=== PATIENT | female | born 1990 | race Two or more races ===

== ENCOUNTER 2022-02-17 17:41 | Inpatient (IN) | payer OTHER ==
[~2022-02-17] VITALS: Ht 175.3 cm; Wt 59.0 kg
[2022-02-17] MEDS ORDERED: IV LR 1000 ML 1,000 ML IV ONE ×3 (18:30→22:00)
--- NOTE | 2022-02-17 19:31 | NUR ---
RECEIVED PT IN ER ROOM 4. FROM HOME C/O ABD PAIN , N/V. PT IS ALERT AND ORIENTED. RR EVEN AND NON LABORED. CONNECTED TO POX AND HEART MONITOR.
[2022-02-17 19:39] LABS: CALCIUM, SERUM 8.7 mg/dL (8.5-10.1); CREATININE 2.2 mg/dL (0.6-1.3); POTASSIUM 5.4 mmol/L (3.5-5.1)
--- NOTE | 2022-02-17 19:40 | NUR ---
CRITICAL LAB GLUCOSE: [id number] , CO2 : 6 MADE AWARE
[2022-02-17 19:42] LABS: ALBUMIN 4.3 g/dL (3.4-5.0); BILIRUBIN,TOTAL 0.7 mg/dL (0.2-1.0); TOTAL PROTEIN, SERUM 8.6 g/dL (6.4-8.2)
[2022-02-17 19:51] LABS: BILIRUBIN,URINE 1+ (NEGATIVE); COLOR,URINE YELLOW (YELLOW); LEUKOCYTE ESTERASE ,URINE NEGATIVE (NEGATIVE); NITRITE, URINE NEGATIVE (NEGATIVE); PH,URINE 5.5 (5.0-8.0); PROTEIN,URINE 1+ mg/dl (NEGATIVE); UGLUCOSE 3+ mg/dL (NEGATIVE); UROBILINOGEN,URINE 0.2 EU/dL (0.2)
[2022-02-17] MEDS ORDERED: INSULIN REGULAR, HUMAN 100 UNIT in IV NS 0.9% 99 ML IV STA ×2 (19:52)
[2022-02-17] MEDS ORDERED: IV NS 0.9% 1,000 ML IV PRN (20:00)
[2022-02-17 20:13] LABS: BACTERIA,URINE None seen /HPF (None Seen); WBC,URINE 0-2 /HPF (0-3)
[2022-02-17 20:14] LABS: MUCUS,URINE Few /LPF (None Seen)
[2022-02-17] MEDS ORDERED: INSULIN REGULAR, HUMAN 100 UNIT/ML 10 ML VIAL ONE (20:21)
[2022-02-17 20:22] LABS: BASOPHILS # (AUTO) 0.1 K/uL (0.0-0.2); BASOPHILS % (AUTO) 0.2 % (0.0-2.0); HEMATOCRIT 52 % (33-45); HEMOGLOBIN 17.2 g/dL (11.5-14.8); LYMPHOCYTES # (AUTO) 1.1 K/uL (0.8-4.8); LYMPHOCYTES % (AUTO) 2.7 % (20.0-44.0); MEAN CORPUSCULAR HGB CONC 33 g/dl (31.0-36.0); MEAN CORPUSCULAR VOLUME 96 fL (82-100); MONOCYTES # (AUTO) 2.8 K/uL (0.1-1.30); NEUTROPHILS # (AUTO) 36.4 K/uL (1.8-8.9); NEUTROPHILS % (AUTO) 90.1 % (43.0-81.0); PLATELET COUNT (AUTO) 450 K/uL (150-450); RED BLOOD CELL COUNT(AUTO) 5.46 MIL/uL (4.0-5.2)
[2022-02-17 20:41] LABS: CALCIUM, SERUM 8.5 mg/dL (8.5-10.1); CREATININE 1.9 mg/dL (0.6-1.3); MAGNESIUM 2.2 mg/dL (1.8-2.4); POTASSIUM 5.4 mmol/L (3.5-5.1)
[2022-02-17 20:43] LABS: WHITE BLOOD COUNT (AUTO) 40.4 K/uL (4.3-11.0)
--- NOTE | 2022-02-17 20:43 | NUR ---
GLUCOSE 521 CO2 6, MD AWARE
--- NOTE | 2022-02-17 21:12 | NUR ---
CORDELL FROM [facility] NOTIFIED OF PT. AWAITING MD CALL BACK.
--- NOTE | 2022-02-17 21:48 | NUR ---
POC BG [phone]
[2022-02-17] MEDS ORDERED: ACETAMINOPHEN 325 MG TABLET PO PRN (22:00)
[2022-02-17] MEDS ORDERED: ONDANSETRON HCL/PF 4 MG/2 ML VIAL IVP PRN (22:00)
[2022-02-17] MEDS ORDERED: MORPHINE SULFATE INJ 2 MG/ML DISP.SYRIN IV PRN (22:00)
[2022-02-17] MEDS ORDERED: INSULIN REGULAR, HUMAN 100 UNIT in IV NS 0.9% 99 ML IV SCH ×2 (22:00)
[2022-02-17] MEDS ORDERED: IV D5/0.45 NACL 1,000 ML IV PRN (22:00)
[2022-02-17] MEDS ORDERED: PIPERACILLIN /TAZOBACTAM 3.375 G in IV D5W 50 ML IV ONE (22:00)
[2022-02-17] MEDS ORDERED: VANCOMYCIN 1 GM in IV D5W 250 ML IV ONE (22:00)
[2022-02-17] MEDS ORDERED: POTASSIUM CL. PREMIX PERIPHER. 50 ML IV PRN (22:00)
[2022-02-17] MEDS ORDERED: MAG HYDROX/AL HYDROX/SIMETH 30 ML UDC PO PRN (22:00)
[2022-02-17] MEDS ORDERED: PIPERACILLIN /TAZOBACTAM 3.375 G VIAL IV ONE (22:02)
--- NOTE | 2022-02-17 22:10 | NUR ---
HOSPITALIST [facility]ULMARO AT [facility]
[2022-02-17 22:13] LABS: BAND % (MANUAL) 7 % (0.0-5.0); LYMPHOCYTES % (MANUAL) 5 % (16-48); MONOCYTES % (MANUAL) 6 % (0-11.0); NEUTROPHILS % (MANUAL) 82 (42-76)
--- NOTE | 2022-02-17 22:15 | NUR ---
PER DR CHAMBERLAIN, CANCEL ORDER FOR 1000ML LR
[2022-02-17 22:21] LABS: CALCIUM, SERUM 8.6 mg/dL (8.5-10.1); CREATININE 1.7 mg/dL (0.6-1.3); MAGNESIUM 2.2 mg/dL (1.8-2.4)
--- NOTE | 2022-02-17 22:36 | NUR ---
CO2 9 AND GLUCOSE 472, MD AWARE
[2022-02-17 22:40] LABS: SITE, VBG Other; VBG COHb 0.3 %; VBG MetHb 0.4 %; VBG O2Hb 86.4 %; VENT MODE, VBG VBG
[2022-02-17 22:47] LABS: CALCIUM, SERUM 8.4 mg/dL (8.5-10.1); CREATININE 1.7 mg/dL (0.6-1.3); POTASSIUM 4.7 mmol/L (3.5-5.1)
--- NOTE | 2022-02-17 22:51 | NUR ---
ICU 254
[2022-02-17 22:53] LABS: ALBUMIN 3.6 g/dL (3.4-5.0); BILIRUBIN,TOTAL 0.9 mg/dL (0.2-1.0); TOTAL PROTEIN, SERUM 7.4 g/dL (6.4-8.2)
[2022-02-17] MEDS ORDERED: VANCOMYCIN 1 GM VIAL ONE (23:01)
--- NOTE | 2022-02-17 23:18 | NUR ---
REPORT GIVEN TO QUEENIE MAYORGA FOR RUDY
[2022-02-17 23:30] LABS: CALCIUM, SERUM 8.5 mg/dL (8.5-10.1); CREATININE 1.7 mg/dL (0.6-1.3); MAGNESIUM 2.1 mg/dL (1.8-2.4); PHOSPHORUS 2.4 mg/dL (2.5-4.9); POTASSIUM 4.5 mmol/L (3.5-5.1)
[2022-02-18] VITALS (16 sets, daily range): BP systolic 90–130; BP diastolic 56–73
[2022-02-18] MEDS ORDERED: CEFEPIME 2 GM in IV D5W 100 ML IV ONE ×2
[2022-02-18 00:01] LABS: BILIRUBIN,DIRECT 0.2 mg/dL (0.0-0.2)
[2022-02-18] MEDS: IV 1/2NS 1000 ML 1,000 ML IV PRN ×2 (00:37→08:12)
[2022-02-18] MEDS: BLOOD SUGAR DIAGNOSTIC 1 EACH STRIP IN SCH ×7 (00:44→21:57)
[2022-02-18] MEDS ORDERED: CEFEPIME 1 GM VIAL ONE (01:43)
--- NOTE | 2022-02-18 02:38 | NUR ---
ICU/RN: PT POC BLOOD GLUCOSE 221 IVF CHANGED TO D5 1/2NS @250ML/HR PER MD ORDER.
[2022-02-18 03:10] LABS: ALBUMIN 3.3 g/dL (3.4-5.0); CALCIUM, SERUM 8.4 mg/dL (8.5-10.1); CREATININE 1.4 mg/dL (0.6-1.3); POTASSIUM 3.8 mmol/L (3.5-5.1); TOTAL PROTEIN, SERUM 6.7 g/dL (6.4-8.2)
--- NOTE | 2022-02-18 03:57 | NUR ---
ICU/RN: LATEST BMP RESULTS RELAYED TO DR. WILKINS. NEW ORDERS TO DC INSULIN DRIP. DC Q1H ACCUCHECK. KEEP IVF D51/2NS@250ML/HR. START ACHS ACCUCHECK WITH REGULAR INSULIN SLIDING SCALE AND GIVE 12UNITS LANTUS SQ TIMES 1 NOW.
[2022-02-18] MEDS ORDERED: *INSULIN REGULAR(HUMULIN R)HUM 100 UNIT/ML VIAL SQ PRN (04:00)
[2022-02-18] MEDS ORDERED: DEXTROSE 50%-WATER 50 ML DISP.SYRIN IV PRN (04:00)
[2022-02-18] MEDS ORDERED: INSULIN GLARGINE, 100 UNIT/ML CARTRIDGE SQ ONE (05:34)
[2022-02-18] MEDS ORDERED: INSULIN REGULAR, HUMAN 100 UNIT/ML 3 ML VIAL ONE (05:34)
[2022-02-18] MEDS: INSULIN GLARGINE, 100 UNIT/ML CARTRIDGE SQ SCH ×3 (05:42→17:34)
[2022-02-18 06:32] LABS: SITE, VBG Right Radial; VBG AaDO2 14.6 mmHg; VBG COHb 0.9 %; VBG MetHb 0.2 %; VBG OXYGEN SATURATION 98.1 %; VENT MODE, VBG room air
[2022-02-18 06:57] LABS: BASOPHILS % (AUTO) 0.2 % (0.0-2.0); HEMATOCRIT 42 % (33-45); HEMOGLOBIN 14.7 g/dL (11.5-14.8); LYMPHOCYTES # (AUTO) 1.6 K/uL (0.8-4.8); LYMPHOCYTES % (AUTO) 6.7 % (20.0-44.0); MEAN CORPUSCULAR HGB CONC 35 g/dl (31.0-36.0); MEAN CORPUSCULAR VOLUME 89 fL (82-100); MONOCYTES # (AUTO) 2.4 K/uL (0.1-1.30); MONOCYTES % (AUTO) 10.3 % (2.0-12.0); NEUTROPHILS # (AUTO) 19.6 K/uL (1.8-8.9); NEUTROPHILS % (AUTO) 82.8 % (43.0-81.0); PLATELET COUNT (AUTO) 308 K/uL (150-450); WHITE BLOOD COUNT (AUTO) 23.7 K/uL (4.3-11.0)
[2022-02-18 07:30] LABS: ALBUMIN 3.1 g/dL (3.4-5.0); CALCIUM, SERUM 8.3 mg/dL (8.5-10.1); CREATININE 1.1 mg/dL (0.6-1.3); MAGNESIUM 1.9 mg/dL (1.8-2.4); PHOSPHORUS 2.5 mg/dL (2.5-4.9); TOTAL PROTEIN, SERUM 6.4 g/dL (6.4-8.2)
[2022-02-18] MEDS: INSULIN REGULAR, HUMAN 100 UNIT/ML 3 ML VIAL SQ PRN ×2 (08:15→13:19)
[2022-02-18] MEDS ORDERED: SPIRONOLACTONE 25 MG TABLET PO SCH (09:00)
[2022-02-18] MEDS ORDERED: INSU100V SQ (09:03)
[2022-02-18] MEDS: VANCOMYCIN 1 GM in IV D5W 250 ML IV SCH ×2 (09:52→20:37)
[2022-02-18] MEDS: ESTRADIOL 1 MG TABLET PO SCH ×2 (10:47→17:15)
--- NOTE | 2022-02-18 10:47 | NUR ---
[facility] MED. DUE AT 0900AM, UNAVAILABLE EARLIER; JUST DELIVERED NOW; FOLLOW-UP MADE 4X WITH LACI-PHARMACIST AT 0900A; 0930AM, 1000AM AND 10:30AM. ADMINISTERED LATE. CHARGE NURSE AWARE.
[2022-02-18 10:52] LABS: CALCIUM, SERUM 8.1 mg/dL (8.5-10.1); CREATININE 1.1 mg/dL (0.6-1.3); POTASSIUM 3.4 mmol/L (3.5-5.1)
[2022-02-18 10:58] LABS: ALBUMIN 2.9 g/dL (3.4-5.0); BILIRUBIN,TOTAL 0.8 mg/dL (0.2-1.0); TOTAL PROTEIN, SERUM 5.9 g/dL (6.4-8.2)
[2022-02-18] MEDS: IV NS 0.9% 1,000 ML IV PRN (11:02)
--- NOTE | 2022-02-18 11:40 | NUR ---
PATIENT TRANSFERRED FORM ICU WITH WHEEL CHAIR ACCOMPANIED BY STAFF, ADMIT DX IS DKA REPORTED BY AMBREEN/RN. PATIENT AO X 4, ABLE TO RESPONDS ALL STIMULI, IN NO ACUTE DISTRESS OBSERVED. RESPIRATORY EVEN AND UNLABORED IN ROOM AIR. AMBULATORY WITHOUT ASSIST. CALL LIGHT WITHIN REACH, WILL CONTINUE TO MONITOR.
--- NOTE | 2022-02-18 11:50 | NUR ---
TRANSFERRED PT TO [facility] 307-1 PER ORDER/PROTOCOL; BEDSIDE REPORT GIVEN TO MIMI, PT.STABLE CONDITION; NO SSx OF DISTRESS NOTED. VS STABLE . ALL BELONGINGS TRANSFERRED WITH PATIENT, MIMI AWARE.
[2022-02-18] MEDS: CEFEPIME 2 GM in IV D5W 100 ML IV SCH (13:21)
[2022-02-18 14:46] LABS: ALBUMIN 2.8 g/dL (3.4-5.0); BILIRUBIN,TOTAL 0.8 mg/dL (0.2-1.0); CALCIUM, SERUM 8.5 mg/dL (8.5-10.1); CREATININE 0.9 mg/dL (0.6-1.3); POTASSIUM 3.5 mmol/L (3.5-5.1); TOTAL PROTEIN, SERUM 5.8 g/dL (6.4-8.2)
--- NOTE | 2022-02-18 16:42 | NUR ---
PATIENT POTASSIUM LEVEL IS 3.4 TODAY. PATIENT DOES NOT WANT TO POTASSIUM ADMINISTER ROUT VIA IV. NEW ORDER POTASSIUM 20 MEQ PO X 1. NOTED AND CARRY OUT.
[2022-02-18] MEDS ORDERED: POTASSIUM CHLORIDE 20 MEQ POWDER PACKET PO ONE (17:00)
--- NOTE | 2022-02-18 18:00 | NUR ---
CLOSING NOTE PATIENT RESTING IN BED. IN NO ACUTE DISTRESS OBSERVED. RESPIRATORY EVEN AND UNLABORED IN ROOM AIR. SKIN IS WARM TO TOUCH KEEP CLEAN/DRY. KEPT ELEVATED HOB FOR ENSURE AIRWAY/ASPIRATION PRECAUTION, AND LOWEST BED POSITION. BED ALARM IS ON AT ALL THE TIME FOR SAFETY. CALL LIGHT WITHIN REACH, WILL ENDORSE HOTEL OR MOTEL CLEANING SUPERVISOR.
[2022-02-18 18:52] LABS: CALCIUM, SERUM 8.6 mg/dL (8.5-10.1); CREATININE 0.9 mg/dL (0.6-1.3); POTASSIUM 3.5 mmol/L (3.5-5.1)
[2022-02-18 18:58] LABS: ALBUMIN 2.8 g/dL (3.4-5.0); BILIRUBIN,TOTAL 0.8 mg/dL (0.2-1.0); TOTAL PROTEIN, SERUM 5.7 g/dL (6.4-8.2)
--- NOTE | 2022-02-18 19:35 | NUR ---
MS RN NOTES RECEIVED ON BED SLEEPING,EASILY AROUSABLE TO VERBAL STIMULI,BREATHING REGULAR,NOT IN ANY FORM OF DISTRESS.PRESENT IVF NS AT 150ML/HR RATE INFUSING WELL ON LEFT AC SALINE LOCK VIA IV PUMP.NO COMPLAINTS AT THE MOMENT,CALL LIGHT IN REACH,NEEDS ANTICIPATED.
--- NOTE | 2022-02-18 22:00 | NUR ---
MS RN NOTES ACCU-CHECK BLOOD SUGAR CHECK 247MG/DL,COVERED WITH HUMULIN R 4 UNITS PER SLIDING SCALE.
[2022-02-18 22:52] LABS: ALBUMIN 2.8 g/dL (3.4-5.0); BILIRUBIN,TOTAL 0.6 mg/dL (0.2-1.0); CALCIUM, SERUM 8.7 mg/dL (8.5-10.1); CREATININE 0.9 mg/dL (0.6-1.3); POTASSIUM 3.8 mmol/L (3.5-5.1); TOTAL PROTEIN, SERUM 5.8 g/dL (6.4-8.2)
[2022-02-19] MEDS: CEFEPIME 2 GM in IV D5W 100 ML IV SCH ×2 (01:51→13:49)
[2022-02-19 02:21] LABS: CALCIUM, SERUM 8.5 mg/dL (8.5-10.1); CREATININE 0.7 mg/dL (0.6-1.3); POTASSIUM 3.2 mmol/L (3.5-5.1)
[2022-02-19 02:28] LABS: ALBUMIN 2.8 g/dL (3.4-5.0); BILIRUBIN,TOTAL 0.7 mg/dL (0.2-1.0); TOTAL PROTEIN, SERUM 5.7 g/dL (6.4-8.2)
[2022-02-19] MEDS: IV NS 0.9% 1,000 ML IV PRN ×3 (03:24→13:56)
--- NOTE | 2022-02-19 05:30 | NUR ---
MS RN NOTES ACCU-CHECK BLOOD SUGAR CHECK 85,NO INSULIN COVERAGE.SNACKS PROVIDED AT BEDSIDE PER PATIENT REQUEST.
[2022-02-19 06:00] LABS: ALBUMIN 2.8 g/dL (3.4-5.0); BILIRUBIN,TOTAL 0.7 mg/dL (0.2-1.0); CALCIUM, SERUM 8.5 mg/dL (8.5-10.1); CREATININE 0.7 mg/dL (0.6-1.3); POTASSIUM 3.4 mmol/L (3.5-5.1); TOTAL PROTEIN, SERUM 5.8 g/dL (6.4-8.2)
--- NOTE | 2022-02-19 06:32 | NUR ---
MS RN NOTES ON BED,BLOOD SUGAR WITH IN NORMAL LIMITS,IV INFUSING WELL ON LEFT AC,SITE PATENT.IV ABX INFUSED WITHOUT ADVERSE SIDE EFFECTS NOTED.IN NO ACUTE DISTRESS..CALL LIGHT IN REACH,NEEDS ATTENDED.
--- NOTE | 2022-02-19 07:00 | NUR ---
MS RN OPENING NOTES: RECEIVED PATIENT IN BED AWAKE, ALERT AND ORIENTED X 4 AND ABLE TO MAKE NEEDS KNOWN. NO SOB OR CARDIAC DISTRESS NOTED. DENIES ANY PAIN AT THIS TIME. ON ROOM AIR AND TOLERATING WELL. IV ACCESS ON LAC GAUGE 20, RIGHT ARM GAUGE 20 PATENT INTACT AND FLUSHING IV FLUIDS NS 1L @ 150ML/HR. SAFETY MEASURES MAINTAINED: BED LOCKED AND IN LOWEST POSITION, SIDE RAILS UP X2, CALL LIGHT AND BED SIDE TABLE IN EASY REACH. WILL MONITOR ACCORDINGLY. KEPT RESTED AND COMFORTABLE.
[2022-02-19] MEDS: BLOOD SUGAR DIAGNOSTIC 1 EACH STRIP IN SCH ×3 (07:24→16:26)
[2022-02-19 08:00] VITALS: BP 109/68
[2022-02-19] MEDS: ESTRADIOL 1 MG TABLET PO SCH ×2 (08:18→16:22)
[2022-02-19] MEDS: INSULIN GLARGINE, 100 UNIT/ML CARTRIDGE SQ SCH ×2 (08:19→16:25)
[2022-02-19] MEDS ORDERED: POTASSIUM CHLORIDE 20 MEQ TAB.PRT.SR PO SCH (09:00)
[2022-02-19] MEDS: VANCOMYCIN 1 GM in IV D5W 250 ML IV SCH (09:40)
[2022-02-19] MEDS ORDERED: VANCOMYCIN 1 GM in IV D5W 250 ML IV SCH ×2 (10:00→18:00)
[2022-02-19 11:31] LABS: ALBUMIN 2.7 g/dL (3.4-5.0); BILIRUBIN,TOTAL 0.7 mg/dL (0.2-1.0); CALCIUM, SERUM 8.2 mg/dL (8.5-10.1); CREATININE 0.8 mg/dL (0.6-1.3); POTASSIUM 3.8 mmol/L (3.5-5.1); TOTAL PROTEIN, SERUM 5.6 g/dL (6.4-8.2)
[2022-02-19] MEDS: INSULIN REGULAR, HUMAN 100 UNIT/ML 3 ML VIAL SQ PRN (11:34)
[2022-02-19] MEDS ORDERED: IV D5/0.45 NACL 1,000 ML IV PRN (14:30)
[2022-02-19 15:12] LABS: ALBUMIN 2.7 g/dL (3.4-5.0); BILIRUBIN,TOTAL 0.6 mg/dL (0.2-1.0); CALCIUM, SERUM 8.6 mg/dL (8.5-10.1); CREATININE 0.8 mg/dL (0.6-1.3); POTASSIUM 3.8 mmol/L (3.5-5.1); TOTAL PROTEIN, SERUM 5.6 g/dL (6.4-8.2)
[2022-02-19 16:00] VITALS: BP 100/69
[2022-02-19 16:32] LABS: CALCIUM, SERUM 8.2 mg/dL (8.5-10.1); CREATININE 0.7 mg/dL (0.6-1.3); POTASSIUM 3.7 mmol/L (3.5-5.1)
--- NOTE | 2022-02-19 17:02 | NUR ---
MEAT AND POULTRY INSPECTOR NOTES: PT DISCHARGED HOME. PATIENT ALERT AND ORIENTED X 4 AND ABLE TO VERBALIZED NEEDS. DENIES PAIN AT THIS TIME. DISCHARGE PACKET AND INSTRUCTIONS GIVEN TO PT AND VERBALIZED UNDERSTANDING. REMOVED IV ACCESS AND IDENTIFICATION BAND. SKIN IS INTACT.PATIENT ACCOMPANIED BY PARTNER JAVY. PT LEFT THE UNIT STABLE.
== END 2022-02-19 16:58 | disposition home or self-care (01) | DRG 871 ==
LOC: ER 18:40 → ICU 23:20 → MED 02-18 11:40
PROVIDERS: ADMIT Internal Medicine; ATTEND Nurse Practitioner Acute Care
DX: A41.9 Sepsis, unspecified organism (principal); E10.10 Type 1 diabetes mellitus with ketoacidosis without coma; N17.0 Acute kidney failure with tubular necrosis; R65.20 Severe sepsis without septic shock; Z20.822 Contact with and (suspected) exposure to COVID-19; Z79.4 Long term (current) use of insulin; E86.0 Dehydration; E87.5 Hyperkalemia; F64.9 Gender identity disorder, unspecified; E88.09 Other disorders of plasma-protein metabolism, not elsewhere classified; E86.1 Hypovolemia; E87.6 Hypokalemia; Z79.890 Hormone replacement therapy; K52.9 Noninfective gastroenteritis and colitis, unspecified
CPT/HCPCS: 36415; 71045-TC; 80048-TC; 80053-TC; 80202-TC; 81001; 82248-TC; 82803-TC; 82962-TC; 83605-TC; 83735-TC; 84100-TC; 84703-TC; 85025-TC; 87040-TC; 87081-TC; C9803; G0378; J0692; J1815; J2543; J3370; J3490; J7030; J7060; J7120